=== PATIENT | female | born 1980 | race Asian ===

== ENCOUNTER 2018-04-18 19:44 | Emergency (ER) | payer SELFPAY | END 2018-04-18 20:10 | disposition left against medical advice (07) | LOC: FTE 19:44 | DX: Z53.21 Procedure and treatment not carried out due to patient leaving prior to being seen by health care provider (principal) ==

== ENCOUNTER 2018-12-16 09:13 | Inpatient (IN) | payer OTHER ==
[~2018-12-16] VITALS: Ht 152.4 cm; Wt 64.9 kg
[2018-12-16 09:30] VITALS: BP 106/70; PULSE 111; RESP 24
[2018-12-16] MEDS ORDERED: MINERAL OIL LIGHT 10 ML VIAL TOP PRN (11:00)
[2018-12-16] MEDS ORDERED: MISOPROSTOL 200 MCG TAB PR PRN ×2 (11:00→23:30)
[2018-12-16] MEDS ORDERED: IBUPROFEN 600 MG TAB PO PRN (11:00)
[2018-12-16] MEDS ORDERED: BUTORPHANOL 2 MG INJ IV PRN ×2 (11:00)
[2018-12-16] MEDS ORDERED: METHYLERGONOVINE 0.2 MG INJ IM PRN ×2 (11:00→23:30)
[2018-12-16] MEDS ORDERED: LIDOCAINE 1% (MPF) 30 ML INJ INJ PRN (11:00)
[2018-12-16] MEDS ORDERED: OXYTOCIN 30 UNITS/LR 500 ML IV SCH ×2 (11:00)
[2018-12-16] MEDS ORDERED: OXYTOCIN 30 UNITS/LR 500 ML IV PRN ×2 (11:00→23:30)
[2018-12-16] MEDS ORDERED: CARBOPROST 250 MCG INJ IM PRN ×2 (11:00→23:30)
[2018-12-16] MEDS: LACTATED RINGER'S 1,000 ML IV SCH ×2 (11:35→16:14)
[2018-12-16] MEDS: OXYTOCIN 30 UNITS/LR 500 ML IV SCH (12:11)
[2018-12-16] MEDS ORDERED: FENTAnyl 2MCG/ML-ROPIV 0.2% 100 ML ONE (16:18)
[2018-12-16] MEDS: DEXTROSE 5%-LR 1,000 ML IV SCH ×2 (17:09→23:30)
[2018-12-16] MEDS ORDERED: AMPICILLIN 2 GM/NS (PMX) 100 ML IV ONE (18:00)
[2018-12-16] MEDS ORDERED: NALOXONE (0.4 MG/ML) INJ IV PRN (18:30)
[2018-12-16] MEDS ORDERED: DIPHENHYDRAMINE 50 MG INJ IV PRN ×2 (18:30→23:30)
[2018-12-16] MEDS ORDERED: FENTAnyl 2MCG/ML-ROPIV 0.2% 100 ML BAG EPI SCH (18:30)
[2018-12-16] MEDS ORDERED: ONDANSETRON 4 MG INJ IV PRN ×2 (18:30→23:30)
[2018-12-16] MEDS ORDERED: AMPICILLIN 1 GM/NS (PMX) 50 ML IV SCH (22:00)
[2018-12-16] MEDS ORDERED: LACTATED RINGER'S 1,000 ML IV* SCH (23:14)
[2018-12-16] MEDS ORDERED: DIPHENHYDRAMINE 25 MG CAP PO PRN (23:30)
[2018-12-16] MEDS ORDERED: LANOLIN HPA 1 PKT TOP PRN (23:30)
[2018-12-16] MEDS ORDERED: DIBUCAINE 1% 30 GM OINT TOP PRN (23:30)
[2018-12-16] MEDS ORDERED: ACETAMINOPHEN 325 MG TAB PO PRN ×2 (23:30)
[2018-12-16] MEDS ORDERED: MAGNESIUM HYDROXIDE 30ML CUP PO PRN (23:30)
[2018-12-16] MEDS ORDERED: ONDANSETRON 4 MG TAB PO PRN (23:30)
[2018-12-16] MEDS ORDERED: HYDROCODONE/APAP (5/325) TAB PO PRN ×2 (23:30)
[2018-12-16] MEDS ORDERED: BENZOCAINE 20% 56 ML SPRAY TOP PRN (23:30)
[2018-12-17 01:23] VITALS: BP 106/59; PULSE 107; RESP 19
[2018-12-17] MEDS: LACTATED RINGER'S 1,000 ML IV SCH (02:53)
[2018-12-17] MEDS: IBUPROFEN 800 MG TAB PO SCH ×3 (03:02→17:22)
[2018-12-17] MEDS: OXYTOCIN 30 UNITS/LR 500 ML IV SCH (03:28)
[2018-12-17 04:30] VITALS: BP 109/64; PULSE 88; RESP 18
[2018-12-17 08:30] VITALS: BP 103/56; PULSE 90; RESP 18
[2018-12-17] MEDS: SENNA/DOCUSATE NA (8.6MG/50MG) TAB PO SCH (12:01)
[2018-12-17 16:26] VITALS: BP 107/67; PULSE 98; RESP 18
[2018-12-17 20:00] VITALS: BP 102/63; PULSE 87; RESP 18
[2018-12-18] MEDS: IBUPROFEN 800 MG TAB PO SCH ×3 (00:29→11:37)
[2018-12-18] MEDS: SENNA/DOCUSATE NA (8.6MG/50MG) TAB PO SCH ×2 (00:29→08:44)
[2018-12-18 04:28] VITALS: BP 98/54; PULSE 90; RESP 18
[2018-12-18 08:00] VITALS: BP 113/68; PULSE 101; RESP 16
[2018-12-18] MEDS ORDERED: MEASLES,MUMPS,RUBELLA VACCINE INJ SC* ONE (09:00)
[2018-12-18] MEDS ORDERED: VARICELLA VACCINE LIVE/PF 1,350 UNIT/0.5 ML ML SC* ONE (09:00)
== END 2018-12-18 14:10 | disposition home or self-care (01) | DRG 768 ==
LOC: OBT 09:13 → L-D 09:13 → OBT 10:50 → L-D 10:50 → MS1 12-17 08:52
PROVIDERS: ADMIT Obstetrics & Gynecology; ATTEND Obstetrics & Gynecology
PROC: 10E0XZZ Delivery of Products of Conception, External Approach (ICD-10-PCS; principal; 2018-12-16)
PROC: 0DQR0ZZ Repair Anal Sphincter, Open Approach (ICD-10-PCS; 2018-12-16)
DX: O70.20 Third degree perineal laceration during delivery, unspecified (principal); O69.81X0 Labor and delivery complicated by cord around neck, without compression, not applicable or unspecified; Z3A.39 39 weeks gestation of pregnancy; Z37.0 Single live birth
CPT/HCPCS: 36415; 36600; 62322; 76815; 81001; 82803; 82962; 84112; 85025; 85610; 85730; 86592; 86850; 86900; 86901; 87340; 90716; 99464; G0463; J0290; J2210; J2590; J3010; J7120; J7121